=== PATIENT | male | born 1950 | race American Indian/Alaskan Native ===

== ENCOUNTER 2017-07-31 09:25 | Emergency (ER) | payer MEDICARE, OTHER ==
[2017-07-31 09:39] VITALS: BP 145/100
[2017-07-31] MEDS ORDERED: TYLENOL PO ONE (10:30)
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
== END 2017-07-31 10:41 | disposition home or self-care (01) ==
LOC: ED 09:25
DX: S63.502A Unspecified sprain of left wrist, initial encounter (principal); I10 Essential (primary) hypertension; E11.9 Type 2 diabetes mellitus without complications; K21.9 Gastro-esophageal reflux disease without esophagitis; Z90.49 Acquired absence of other specified parts of digestive tract; B19.20 Unspecified viral hepatitis C without hepatic coma; Z88.8 Allergy status to other drugs, medicaments and biological substances
CPT/HCPCS: 99282